=== PATIENT | female | born 1965 | race Asian ===

== ENCOUNTER 2022-07-05 21:42 | Emergency (ER) | payer OTHER ==
[~2022-07-05] VITALS: Ht 160 cm; Wt 63.6 kg
[2022-07-05] MEDS ORDERED: LOSA-30 PO (22:51)
[2022-07-05] MEDS ORDERED: DEXAMETHASONE 4 MG TABLET PO ONE (23:15)
[2022-07-05 23:32] VITALS: BP 159/100
== END 2022-07-05 23:50 | disposition still patient (30) ==
LOC: EMS 21:44
DX: L30.9 Dermatitis, unspecified (principal); I10 Essential (primary) hypertension; Z98.890 Other specified postprocedural states
CPT/HCPCS: 99283; J8540